=== PATIENT | female | born 1995 | race Caucasian/White ===

== ENCOUNTER 2025-03-19 00:41 | Emergency (ER) | payer MEDICAID ==
[~2025-03-19] VITALS: Ht 162.6 cm; Wt 61.4 kg
[2025-03-19 00:56] VITALS: BP 110/67; PULSE 107; RESP 18; TEMP 97.9; O2SAT 98
[2025-03-19 02:31] LABS: PLATELET COUNT (AUTO) 240 K/uL (150-450); RED BLOOD CELL COUNT(AUTO) 4.50 MIL/uL (4.00-5.20); RED CELL DISTRIBUTION WIDTH 12.8 % (11.5-14.5); WHITE BLOOD COUNT (AUTO) 17.2 K/uL (4.5-11.0)
[2025-03-19 02:40] LABS: CALCIUM, TOTAL 8.6 mg/dL (8.8-10.5); CREATININE 0.66 mg/dL (0.60-1.30); GLOMERULAR FILTR. RATE CALC > 60 mL/min (>60); GLUCOSE,RANDOM 96 mg/dL (70-110); SODIUM SERUM 138 mmol/L (136-145); UREA NITROGEN, BLOOD 12 mg/dL (7-18)
[2025-03-19 02:49] LABS: TROPONIN I-HIGH SENSITIVITY Less Than 4 ng/L (<51)
[2025-03-19 04:28] LABS: APPEARANCE,URINE CLEAR (CLEAR); GLUCOSE, URINE (UA) NEGATIVE (NEGATIVE); LEUKOCYTE ESTERASE ,URINE LARGE (NEGATIVE); NITRATE,URINE NEGATIVE (NEGATIVE); OCCULT BLOOD,URINE NEGATIVE (NEGATIVE); SPECIFIC GRAVITIY, URINE 1.019 (1.003-1.030)
[2025-03-19 04:59] LABS: SQUAMOUS EPITHELIAL CELL,UR Moderate /LPF (None Seen)
[2025-03-19] MEDS ORDERED: CEPH-558 PO (05:41)
[2025-03-19] MEDS: CEPHALEXIN MONOHYDRATE 500 MG CAPSULE PO ONE (05:49)
[2025-03-19 05:54] LABS: PH,URINE DRUG SCREEN 6.0 (5.0-8.0)
[2025-03-19 06:10] LABS: ALCOHOL, URINE DRUG SCREEN NEGATIVE (NEGATIVE); AMPHET/METH SCREEN,URINE NEGATIVE (NEGATIVE); BARBITURATE SCREEN, URINE NEGATIVE (NEGATIVE); CANNABINOID SCREEN,URINE NEGATIVE (NEGATIVE); COCAINE SCREEN,URINE NEGATIVE (NEGATIVE); METHADONE SCREEN, URINE NEGATIVE (NEGATIVE)
== END 2025-03-19 05:57 | disposition home or self-care (01) ==
LOC: EMS 00:43
DX: N39.0 Urinary tract infection, site not specified (principal); R06.02 Shortness of breath; R06.00 Dyspnea, unspecified; Z88.2 Allergy status to sulfonamides
CPT/HCPCS: 71045; 80048; 80307; 81001; 83880; 84484; 84703; 85025; 85379; 87086; 93005; 99285; 36415-L1; 36415-TC